=== PATIENT | female | born 1945 ===

== ENCOUNTER 2017-01-27 18:31 | Emergency (ER) | payer MEDICARE ==
[2017-01-27 18:37] VITALS: BP 167/84; PULSE 92; RESP 17; TEMP 97.8; O2SAT 96; BMI 36.1
--- NOTE | 2017-01-27 19:50 | C.PDOC ---
History Of Present Illness 71 year old female who presents to the ER with a complaint of right hand and right wrist pain for the past 2 days. Patient states she woke up 2 days ago with a constant pain to the right hand and right wrist; denies recent injury, weakness, or numbness. Time Seen by Provider: 01/27/17 18:46 Chief Complaint (Nursing): Upper Extremity Problem/Injury History Per: Patient History/Exam Limitations: no limitations Onset/Duration Of Symptoms: Days Current Symptoms Are (Timing): Still Present Exacerbating Factor(s): Nothing Recent travel outside of the [place]: No Past Medical History Reviewed: Historical Data, Nursing Documentation, Vital Signs Vital Signs: Last Vital Signs Temp 97.8 F 01/27/17 18:37 Pulse 92 H 01/27/17 18:37 Resp 17 01/27/17 18:37 BP 167/84 H 01/27/17 18:37 Pulse Ox 96 01/27/17 20:46 - Medical History PMH: HTN Surgical History: No Surg Hx Family History: States: Unknown Family Hx - Social History Hx Alcohol Use: No Hx Substance Use: No - Immunization History Hx Tetanus Toxoid Vaccination: No Hx Influenza Vaccination: No Hx Pneumococcal Vaccination: No Review Of Systems Musculoskeletal: Positive for: Hand Pain Neurological: Negative for: Weakness, Numbness Physical Exam - Physical Exam Appears: Non-toxic Skin: Normal Color, Warm, Dry Head: Atraumatic, Normacephalic Eye(s): bilateral: Normal Inspection Oral Mucosa: Moist Extremity: Normal ROM (x4), Tenderness (To volar wrist. (+) Tinnels test), Capillary Refill (Good), No Deformity, Swelling (to all MCP joints) Pulses: Left Radial: Normal, Right Radial: Normal Neurological/Psych: Oriented x3, Normal Speech, Normal Cognition ED Course And Treatment O2 Sat by Pulse Oximetry: 96 (Room air) Pulse Ox Interpretation: Normal Medical Decision Making Medical Decision Making: Plan: * Prednisone * Toradol Physical exam is indicative of Carpal tunnel vs. arthritis. On reevaluation, patient's pain has much improved; will discharge home with instructions to follow up with PMD. Disposition - Disposition Referrals: [facility] [Outside] Disposition: HOME/ ROUTINE Disposition Time: 19:46 Condition: GOOD Additional Instructions: Followup with the medical doctor within 1-2 days. Return if worsened. Prescriptions: Naproxen [Naprosyn] 500 mg PO BID #20 tab Instructions: Arthritis (ED) Forms: [facility] (Vietnamese) Print Language: SETSWANA - Clinical Impression Clinical Impression: Arthritis - Scribe Statement The provider has reviewed the documentation as recorded by the Scribbekah Zamora All medical record entries made by the Mehnazibbekah were at my direction and personally dictated by me. I have reviewed the chart and agree that the record accurately reflects my personal performance of the history, physical exam, medical decision making, and the department course for this patient. I have also personally directed, reviewed, and agree with the discharge instructions and disposition.
== END 2017-01-27 20:03 | disposition home or self-care (01) ==
LOC: C.ER 18:31
DX: M13.841 Other specified arthritis, right hand (principal)
CPT/HCPCS: 96372; 99283; J1885